=== PATIENT | female | born 1940 | race Caucasian/White ===

== ENCOUNTER → 2017-01-13 | Outpatient (CLI) | payer OTHER ==
[~2017-01-13] MED LIST: ASPIRIN PO; ATOR80TA75 PO; CARV3.122 PO; CLOP75TA PO; DOCU100C24 PO; EZET10TA3 PO; LEVO75TA5 PO; LISI2.5T PO; PARO20TA4 PO; TEMA30CA PO; TIMO1DRO2 EACHEYE; ZOLP10TA5 PO
== END | disposition home or self-care (01) ==
LOC: CVU 12:32
PROVIDERS: ATTEND Surgery
DX: I65.23 Occlusion and stenosis of bilateral carotid arteries (principal); E78.5 Hyperlipidemia, unspecified; I10 Essential (primary) hypertension; Z95.5 Presence of coronary angioplasty implant and graft; Z95.1 Presence of aortocoronary bypass graft; Z87.891 Personal history of nicotine dependence; Z86.73 Personal history of transient ischemic attack (TIA), and cerebral infarction without residual deficits
CPT/HCPCS: 93880; 93922; 93925

== ENCOUNTER 2017-07-20 09:52 | Day surgery (SDC) | payer OTHER ==
[~2017-07-20] VITALS: Ht 167.6 cm; Wt 70.2 kg
[~2017-07-20 09:52] MED LIST changes: +ASPI-496 PO; +ATOR-2 PO; -ATOR80TA75 PO; +EZET10TA18 PO; -EZET10TA3 PO; +LEVO88TA4 PO; +LISI5TAB7 PO
[2017-07-20 11:03] VITALS: BP 131/72
[2017-07-20] MEDS ORDERED: SODIUM CHLORIDE 0.9% 1,000 ML IV SCH (11:05)
[2017-07-20] MEDS ORDERED: MIDAZOLAM 1 MG/ML, 5ML ONE (13:29)
[2017-07-20] MEDS ORDERED: PROTAMINE SULFATE 10 MG/ML, 25ML ONE (13:29)
[2017-07-20] MEDS ORDERED: NITROGLYCERIN 5 MG/ML, 10ML ONE (13:29)
[2017-07-20] MEDS ORDERED: FLUMAZENIL 0.1 MG/1 ML, 5ML ONE (13:29)
[2017-07-20] MEDS ORDERED: NALOXONE 1 MG/ML, 2ML ONE (13:29)
[2017-07-20] MEDS ORDERED: FENTANYL PF 100 MCG/2ML ONE (13:29)
[2017-07-20] MEDS ORDERED: HEPARIN 1,000 UNITS/ML, 10ML ONE (13:29)
[2017-07-20] MEDS ORDERED: LIDOCAINE 2%, 20ML ONE (13:41)
[2017-07-20] MEDS ORDERED: VISIPAQUE 270 MG/ML, 150ML BOTTLE ONE (14:00)
[2017-07-20] MEDS ORDERED: CLOPIDOGREL 75 MG TABLET ONE (15:28)
== END 2017-07-20 18:45 | disposition home or self-care (01) ==
LOC: OUT 09:52
PROVIDERS: ATTEND Surgery
DX: I70.213 Atherosclerosis of native arteries of extremities with intermittent claudication, bilateral legs (principal); I25.10 Atherosclerotic heart disease of native coronary artery without angina pectoris; E11.9 Type 2 diabetes mellitus without complications; I10 Essential (primary) hypertension; E03.9 Hypothyroidism, unspecified; Z95.1 Presence of aortocoronary bypass graft; Z86.73 Personal history of transient ischemic attack (TIA), and cerebral infarction without residual deficits
CPT/HCPCS: 37224; 75625; 75716; 99156; 99157; C1725; C1751; C1760; C1769; C1894; C2623; J1644; J2250; J2720; J3010; J3490; J7030; Q9966; 75630; J2310

== ENCOUNTER → 2017-11-16 | Outpatient (CLI) | payer MEDICARE, OTHER | END | disposition home or self-care (01) | LOC: CVU 09:44 | PROVIDERS: ATTEND Surgery | DX: I70.201 Unspecified atherosclerosis of native arteries of extremities, right leg (principal); I25.10 Atherosclerotic heart disease of native coronary artery without angina pectoris; E78.5 Hyperlipidemia, unspecified; Z95.1 Presence of aortocoronary bypass graft; Z87.891 Personal history of nicotine dependence | CPT/HCPCS: 93922; 93925 ==

== ENCOUNTER → 2018-06-07 | Outpatient (CLI) | payer MEDICARE, OTHER ==
[~2018-06-07] MED LIST changes: +DOCU-193 PO; -DOCU100C24 PO; +REGADENOSON 0.4 MG/5 ML SYRINGE ONE
== END | disposition home or self-care (01) ==
LOC: CFH 11:43
PROVIDERS: ATTEND Internal Medicine Cardiovascular Disease
DX: I25.10 Atherosclerotic heart disease of native coronary artery without angina pectoris (principal); I25.5 Ischemic cardiomyopathy
CPT/HCPCS: 78452; 93017; 93306; A9502; J2785

== ENCOUNTER → 2018-07-27 | Outpatient (CLI) | payer MEDICARE ==
[~2018-07-27] MED LIST changes: -REGADENOSON 0.4 MG/5 ML SYRINGE ONE
== END | disposition home or self-care (01) ==
LOC: CVU 10:08
PROVIDERS: ATTEND Surgery
DX: I70.212 Atherosclerosis of native arteries of extremities with intermittent claudication, left leg (principal); I77.1 Stricture of artery; I10 Essential (primary) hypertension; E78.5 Hyperlipidemia, unspecified; I25.10 Atherosclerotic heart disease of native coronary artery without angina pectoris; Z87.891 Personal history of nicotine dependence; Z95.1 Presence of aortocoronary bypass graft
CPT/HCPCS: 93922; 93925

== ENCOUNTER → 2020-05-03 | Outpatient (CLI) | payer MEDICARE ==
[~2020-05-03] MED LIST changes: -EZET10TA18 PO; +EZET10TA70 PO; +REGADENOSON 0.4 MG/5 ML SYRINGE ONE
== END | disposition home or self-care (01) ==
LOC: CFH 10:38
PROVIDERS: ATTEND Internal Medicine Cardiovascular Disease
DX: I08.3 Combined rheumatic disorders of mitral, aortic and tricuspid valves (principal); I25.10 Atherosclerotic heart disease of native coronary artery without angina pectoris; I10 Essential (primary) hypertension
CPT/HCPCS: 78452; 93017; 93306; A9502; J2785